=== PATIENT | female | born 1995 | race Caucasian/White ===

== ENCOUNTER 2019-06-12 19:31 | Outpatient (CLI) | payer SELFPAY | END 2019-06-12 20:49 | disposition home or self-care (01) | LOC: D.LDO 19:31 | PROVIDERS: ATTEND Obstetrics & Gynecology | DX: O26.899 Other specified pregnancy related conditions, unspecified trimester (principal); Z3A.00 Weeks of gestation of pregnancy not specified; N93.9 Abnormal uterine and vaginal bleeding, unspecified ==

== ENCOUNTER 2019-10-03 10:47 | Outpatient (CLI) | payer BC ==
[2019-10-03 12:07] LABS: BILIRUBIN NEGATIVE (NEGATIVE); GLUCOSE NEGATIVE (NEGATIVE); KETONE NEGATIVE (NEGATIVE); NITRITE NEGATIVE (NEGATIVE); SPECIFIC GRAVITY 1.005 (1.005-1.020); UROBILINOGEN NORMAL (NORMAL)
[2019-10-03 12:09] LABS: BACTERIA MANY /hpf (NEGATIVE); EPITHELIAL CELLS 0-5 /hpf (0-5); RED CELLS - URINE RARE /hpf (0-5); WHITE CELLS - URINE 0-5 /hpf (NEGATIVE)
== END 2019-10-03 12:20 | disposition home or self-care (01) ==
LOC: D.LDO 10:47
PROVIDERS: ATTEND Obstetrics & Gynecology
DX: O26.899 Other specified pregnancy related conditions, unspecified trimester (principal); R05 Cough

== ENCOUNTER 2019-10-31 04:09 | Inpatient (IN) | payer BC ==
[~2019-10-31] VITALS: Ht 172.7 cm; Wt 75.0 kg
[2019-10-31] MEDS ORDERED: PRENAVITE1 TAB PO (04:26)
[2019-10-31 04:39] VITALS: BP 140/82; Ht 172.7 cm; Wt 75.0 kg
[2019-10-31 05:14] LABS: HEMATOCRIT 37.9 % (36.0-48.0); HEMOGLOBIN 11.7 g/dL (12-16); MCH 24.8 pg (26.0-34.0); MCHC 30.9 g/dL (31.0-37.0); MCV 80.5 fL (80.0-100.0); MEAN PLATELET VOLUME 10.3 fL (7.4-10.4); RBC 4.71 10x6/uL (4.00-5.40); RDW 15.5 % (11.5-14.5); WBC 8.2 10x3/uL (4.8-10.8)
--- NOTE | 2019-10-31 15:34 | NUR ---
PAIN REASSESSMENT COMPLETED, DENIES PAIN AND NEEDS. REMAINS IN NBN. PT STATES THAT SHE IS JUST RESTING FOR NOW. SPOUSE AT BEDSIDE, SUPPORTIVE AND ATTENTIVE. DENIES NEEDS. BED IN LOW POSITION WITH SRUP X2. CALL LIGHT AND PHONE WITHIN REACH. WILL CONTINUE TO MONITOR.
--- NOTE | 2019-10-31 16:37 | NUR ---
BONDING WITH INFANT IN ARMS. DENIES PAIN AND NEEDS. SPOUSE AT BEDSIDE, SUPPORTIVE AND ATTENTIVE TO PT AND NEEDS. BED IN LOW POSITION WITH SRUP X2. CALL LIGHT AND PHONE WITHIN REACH. WILL CONTINUE TO MONITOR.
--- NOTE | 2019-10-31 17:41 | NUR ---
ROUNDS MADE. ASSISTED WITH BF, UNABLE TO GET TO LATCH, NBN NOTIFIED AND TO ROOM. PT DENIES NEEDS. FUNDUS FIRM MIDLINE AND U2 WITH SCANT RUBRA LOCHIA, NO CLOTS NOTED. ICE PACK REMAINS IN PLACE. DENIES NEEDS. WILL CONTINUE TO MONITOR.
--- NOTE | 2019-10-31 19:08 | NUR ---
BEDSIDE SHIFT REPORT COMPLETED WITH NATALIIA VIERA TO ASSUME PT CARE.
--- NOTE | 2019-10-31 19:10 | NUR ---
PATIENT ASSISTED UP TO BATHROOM WITH STEADY GAIT. PT VOIDED 500ML URINE, PERICARE PERFORMED WITH BETADINE/WATER IN A SQUEEZE BOTTLE, CLEAN PAD AND PANTIES PLACED WITH TUCKS PADS IN PLACE. PATIENT BACK TO BED AND NO FURTHER NEEDS IDENTIFIED.
--- NOTE | 2019-10-31 20:08 | NUR ---
SHIFT ASSESSMENT COMPLETED AT THIS TIME. SEE FLOWSHEET.
[2019-10-31 20:09] VITALS: BP 128/61
--- NOTE | 2019-10-31 20:09 | NUR ---
PAIN MEDICATION ADMINISTERED PER PT REQUEST, SEE EMAR
--- NOTE | 2019-10-31 21:00 | NUR ---
MEDICATION ADMINISTERED PER PT REQUEST AND MD ORDERS. SEE EMAR.
--- NOTE | 2019-10-31 23:50 | NUR ---
TPT LAYING IN BED HOLDING . NO NEEDS IDENTIFIED. SIGNIFICANT OTHER REMAINS AT BEDSIDE FOR SUPPOR
--- NOTE | 2019-11-01 01:45 | NUR ---
PT SITTING UP IN BED HOLDING . NO NEEDS IDENTIFIED. BED REMAINS LOCKED IN LOW POSITION, SIDERAILS UPX2, CALL TONEY AND TRAY TABLE IN REACH. WILL CONTINUE TO MONITOR.
--- NOTE | 2019-11-01 03:16 | NUR ---
PT STANDING BY SINK CLEANING OUT HER BREAST PUMP PIECES. PT REQUESTS A BOTTLE FROM NATALIIA SALAZAR.
--- NOTE | 2019-11-01 04:45 | NUR ---
PT RESTING QUIETLY, NO DISTRESS NOTED. DENIES NEEDS, WILL CONTINUE TO MONITOR
[2019-11-01 05:41] LABS: BASOPHILS 0.2 % (0-2); EOSINOPHILS 0.8 % (0-7); HEMOGLOBIN 10.1 g/dL (12-16); IMMATURE GRANULOCYTES 0.2 % (0-5); LYMPHOCYTES 17.2 % (15-50); MCH 24.5 pg (26.0-34.0); MCHC 29.7 g/dL (31.0-37.0); MEAN PLATELET VOLUME 9.9 fL (7.4-10.4); MONOCYTES 10.1 % (2-11); NEUTROPHILS 71.5 % (40-80); RBC 4.12 10x6/uL (4.00-5.40); RDW 15.9 % (11.5-14.5); WBC 8.7 10x3/uL (4.8-10.8)
[2019-11-01 06:17] LABS: MCV 82.5 fL (80.0-100.0); PLATELET COUNT 201 10x3/uL (130-400)
--- NOTE | 2019-11-01 07:03 | NUR ---
PT RESTING WITH EYES CLOSED IN SEMI-FOWLERS POSITION, RESP REGULAR AND UNLABORED, NO S/S OF DISTRESS NOTED. BED IN LOW POSITION WITH SRUP X2. CALL LIGHT AND PHONE WITHIN REACH. NOT DISTURBED TO ALLOW FOR REST. WILL CONTINUE TO MONITOR.
[2019-11-01 07:10] LABS: RAPID PLASMA REAGIN Non Reactive (Non Reactive)
--- NOTE | 2019-11-01 07:43 | NUR ---
DR. SPRINGER AND DR. HERNANDEZ AT BEDSIDE DISCUSSING POC WITH PT AND PT SPOUSE.
[2019-11-01 08:13] VITALS: BP 131/61
--- NOTE | 2019-11-01 08:13 | NUR ---
SHIFT ASSESSMENT COMPLETED PER FLOWSHEET. VSS. FUNDUS FIRM, MIDLINE AND U1 WITH SCANT RUBRA LOCHIA, NO CLOTS NOTED. POC DISCUSSED WITH PT AND SPOUSE, VERBALIZES UNDERSTANDING. BILATERAL LABIAL EDEMA PRESENT 1+, MUCH IMPROVED FROM THIS RN'S PREVIOUS SHIFT CARING FOR PT. VERBALIZES UNDERSTANDING OF PERICARE AND DENIES QUESTIONS AND NEEDS. SPOUSE SUPPORTIVE AND ATTENTIVE TO PT AND INFANT NEEDS. BED IN LOW POSITION WITH SRUP X2. CALL LIGHT AND PHONE WITHIN REACH. WILL CONTINUE TO MONITOR.
--- NOTE | 2019-11-01 09:08 | NUR ---
UP TO SHOWER. LINENS CHANGED. DENIES ADDITIONAL NEEDS. VERBALIZES UNDERSTANDING OF BR CALL LIGHT USE. SPOUSE REMAINS IN ROOM WITH . WILL CONTINUE TO MONITOR.
--- NOTE | 2019-11-01 09:52 | NUR ---
SITTING IN HIGH FOWLWERS POSITION WATCHING TV. ICE PACK PROVIDED FOR PERINUEM. SITZ BATH MOORE PROVIDED AND PT INSTRUCTED ON USE, VERBALIZES UNDERSTANDING AND DENIES QUESTIONS. STATES THAT SHE WILL NOTIFY RN IF ASSISTANCE NEEDED WHEN USING SITZ BATH. ICE WATER PROVIDED, DENIES ADDITIONAL NEEDS. WILL CONTINUE TO MONITOR.
--- NOTE | 2019-11-01 11:03 | NUR ---
PT CALLS VIA CALL LIGHT. REQUEST MORE DERMAPLAST AND PROCTOFOAM, STATING THAT SHE IS ALMOST OUT. PROVIDED PER ORDER AND PT REQUEST. STATES THAT SHE DOESN'T NEED TUX THAT SHE STILL HAS PLENTY LEFT. DENIES ADDITIONAL NEEDS. BED IN LOW POSITION WITH SRUP X2. CALL LIGHT AND PHONE WITHIN REACH. WILL CONTINUE TO MONITOR.
--- NOTE | 2019-11-01 11:48 | NUR ---
ASSISTED PT WITH GETTING TO LATCH ON. DENIES PAIN AND ADDITIONAL NEEDS AT THIS TIME. SPOUSE REMAINS AT BEDSIDE. BED IN LOW POSITION WITH SRUP X2. CALL LIGHT AND PHONE WITHIN REACH. WILL CONTINUE TO MONITOR.
--- NOTE | 2019-11-01 13:20 | NUR ---
REQUESTING THAT SALINE LOCK BE REMOVED- IV CATH REMOVED- CATH TIP INTACT. PRESSURE HELD AND BANDAIDE APPLIED.
--- NOTE | 2019-11-01 14:24 | NUR ---
pt states that she is ready to go home. nursery states that can discharge. phoned dr santizo of pt request- discharge order received.
--- NOTE | 2019-11-01 14:51 | NUR ---
DISCUSSED TDAP VACCINE WITH PT- NOTED RECOMMENDED ON AR VACCINE WEBSITE- COPY GIVEN TO PT. PT STATES SHE WILL GET T-DAP VACCINE AT DR SPRINGER'S OFFICE. STATES THAT SHE IS READY TO GO HOME.
[2019-11-01] MEDS ORDERED: HYDROCODON-ACE1 EAC7 PO (15:18)
[2019-11-01] MEDS ORDERED: IBUPROFEN600 MG PO (15:20)
--- NOTE | 2019-11-01 15:42 | NUR ---
DISCHARGE INST VERBAL AND WRITTEN GIVEN. SCRIPT GIVEN WITH DRUG DATA SHEETS AND PT MED REC. AWHONN FORM GIVEN. SEE ALSO SIGNED INST SHEET. PT HEALTH SUMMARY GIVEN. PFW POST INST GIVEN. DENIES QUESTIONS. STATES SHE IS READY TO LEAVE.
--- NOTE | 2019-11-01 16:00 | NUR ---
DISCHARGED HOME WITH - TO AUTO VIA W/C. STABLE
== END 2019-11-01 16:00 | disposition home or self-care (01) | DRG 807 ==
LOC: D.LD 04:09
PROVIDERS: ADMIT Obstetrics & Gynecology; ATTEND Obstetrics & Gynecology
PROC: 10E0XZZ Delivery of Products of Conception, External Approach (ICD-10-PCS; principal; 2019-10-31)
PROC: 0KQM0ZZ Repair Perineum Muscle, Open Approach (ICD-10-PCS; 2019-10-31)
DX: O70.1 Second degree perineal laceration during delivery (principal); Z37.0 Single live birth; Z3A.39 39 weeks gestation of pregnancy